=== PATIENT | female | born 1955 | race Two or more races ===

== ENCOUNTER → 2024-02-11 | Emergency (ER) | payer OTHER, MEDICAID ==
[~2024-02-11] VITALS: Ht 160 cm; Wt 92.5 kg
[2024-02-11 22:25] VITALS: BP 168/78; PULSE 63; RESP 18; O2SAT 98
--- NOTE | 2024-02-11 23:47 | ED.PDOC ---
History of present illness HPI Comments 70-year-old female brought in by son. Patient had near syncopal episode earlier today at approximate 9:00 p.m.. Son checked blood sugar and patient was blood sugar was 55. Son gave patient needs sugar Candy inch blood sugar john to 75. There was no loss of consciousness. Patient has stumbled falling hitting her right eyebrow on the wall. Chief Complaint: Head Injury Time Seen by MD: 23:19 History of present illness: Nurses Notes Allergies: Coded Allergies: NO KNOWN ALLERGIES (Unverified , 02/11/24) Information Source: Patient Mode of Arrival: Ambulatory Past Medical History PAST MEDICAL HISTORY: Denies Surgical History: Denies all surgeries CONTENT MANAGEMENT CONSULTANT History: No Pertinent CONTENT MANAGEMENT CONSULTANT History Constitutional: denies: chills, diaphoresis, fatigue, fever, malaise, sweats, weakness, others EENTM: denies: blurred vision, double vision, ear bleeding, ear discharge, ear drainage, ear pain, ear ringing, eye pain, eye redness, hearing loss, mouth pa in, mouth swelling, nasal discharge, nose bleeding, nose congestion, nose pain, photophobia, tearing, throat pain, throat swelling, voice changes, others Respiratory: denies: cough, hemoptysis, orthopnea, SOB at rest, shortness of breath, SOB with excertion, stridor, wheezing, others Cardiovascular: denies: chest pain, dizzy spells, diaphoresis, Dyspnea on exertion, edema, irregular heart beat, left arm pain, lightheadedness, palpitations, PND, syncope, others Gastrointestinal: denies: abdomen distended, abdominal pain, blood streaked bowels, constipated, diarrhea, dysphagia, difficulty swallowing, hematemesis, melena, nausea, poor appetite, poor fluid intake, rectal bleeding, rectal pain, vomiting, others Genitourinary: denies: abnormal vagina bleeding, burning, dyspareunia, dysuria, flank pain, frequency, hematuria, incontinence, pain, , vagina discharge, urgency, others Neurological: denies: dizziness, fainting, headache, left sided numbness, left sided weakness, numbness, paresthesia, pre-existing deficit, right sided numbness, right sided weakness, seizure, speech problems, tingling, tremors, weakness, others Musculoskeletal: denies: back pain, gout, joint pain, joint swelling, muscle pain, muscle stiffness, neck pain, others Integumetry: denies: bruises, change in color, change in hair/nails, dryness, laceration, lesions, lumps, rash, wounds, others Allergic/Immunocompromised: denies: Difficulty Healing, Frequent Infections, Hives, Itching, others Hematologic/Lymphatic: denies: anemia, blood clots, easy bleeding, easy bruising, swollen glands, others Endocrine: denies: excessive hunger, excessive sweating, excessive thirst, excessive urination, flushing, intolerance to cold, intolerance to heat, unexplained weight gain, unexplained weight loss, others Physical Exam General Appearance: No Apparent Distress, Normal HEENT: Normal ENT Inspection, Pharynx Normal, TMs Normal Neck: Full Range of Motion, Non-Tender, Normal, Normal Inspection Respiratory: Chest Non-Tender, Lungs Clear, No Accessory Muscle Use, No Respiratory Distress, Normal Breath Sounds Cardiovascular: No Edema, No JVD, No Murmur, No Gallop, Normal Peripheral Pulses, Regular Rate/Rhythm Breast Exam: Deferred Gastrointestinal: No Organomegaly, Non Tender, No Pulsatile Mass, Normal Bowel Sounds, Soft Genitalia: Deferred Pelvic: Deferred Rectal: Deferred Extremities: No calf tenderness, Normal capillary refill, Normal inspection, Normal range of motion, Non-tender, No pedal edema Musculoskeletal : Apperance: Normal Neurologic: Alert, utility appraiser II-XII nml as Tested, No Motor Deficits, Normal Affect, Normal Mood, No Sensory Deficits Cerebellar Function: Normal Reflexes: Normal Skin: Dry, Normal Color, Warm Lymphatic: No Adenopathy Was a procedure done? Was a procedure done?: No Differential Diagnosis (DM) Differential Diagnosis: Dehydration, Hypoglycemia X-Ray, Labs, Meds, VS Vital Signs Date Time Temp Pulse Resp B/P (MAP) Pulse Ox O2 Delivery O2 Flow Rate FiO2 02/11/24 22:25 97.9 63 18 168/78 (108) 98 Lab Test 02/11/24 22:25 02/11/24 22:24 Range/Units POC Glucose 75 73 70-106 mg/dl X-Ray, Labs, Meds, VS Comment He was explained to sudden patient that to check for any type of bleeding she will need a CT scan. Patient adamant that she does not want to CT scan. They were given education on signs and symptoms for closed head injury and increased intracranial pressure Patient refused CT scan He will follow up in the ER if symptoms worsen. Time of 1ST Reevaluation: 23:47 Reevaluation 1ST: Improved Patient Education/Counseling: Diagnosis, Treatment, Need For Follow Up (Follow up in the emergency department if symptoms worsen.) Family Education/Counseling: Diagnosis Departure 1 Departure Time of Disposition: 23:46 Impression: Primary Impression: Hypoglycemic event in diabetes Disposition: 01 HOME / SELF CARE / HOMELESS Condition: Fair Discharged With: Self Critical Care Note Critical Care Time?: No Stability Stability form required: No Heart Score Heart Score: Heart Score Response (Comments) Value History N/A 0 EKG N/A 0 Age N/A 0 Risk Factors N/A 0 Troponin N/A 0 Total 0 CEDRIC ALVESP Feb 11, 2024 23:47
== END | disposition home or self-care (01) ==
LOC: ER 22:09
DX: E11.649 Type 2 diabetes mellitus with hypoglycemia without coma (principal)
CPT/HCPCS: 82962